=== PATIENT | female | born 1995 | race Caucasian/White ===

== ENCOUNTER → 2018-11-25 09:03 | Outpatient (CLI) | payer MEDICAID ==
[2015-01-14 06:00] VITALS: BMI 49.0
[~2018-11-25 09:03] MED LIST: LISINOPRIL10 MG PO; NORMODYNE / TR100 MG PO; PRENAVITE1 TAB PO
[2018-11-25 10:46] LABS: BASOPHILS 0.1 % (0-2); EOSINOPHILS 0.8 % (0-7); HEMATOCRIT 34.9 % (36.0-48.0); HEMOGLOBIN 11.6 g/dL (12-16); IMMATURE GRANULOCYTES 0.2 % (0-5); LYMPHOCYTES 19.3 % (15-50); MCHC 33.2 g/dL (31.0-37.0); MCV 81.4 fL (80.0-100.0); MEAN PLATELET VOLUME 10.2 fL (7.4-10.4); NEUTROPHILS 72.6 % (40-80); PLATELET COUNT 219 10x3/uL (130-400); RBC 4.29 10x6/uL (4.00-5.40); RDW 13.9 % (11.5-14.5); WBC 8.4 10x3/uL (4.8-10.8)
[2018-11-25 11:02] LABS: ALBUMIN 2.8 g/dL (3.4-5.0); ALKALINE PHOSPHATASE 72 U/L (46-116); ALT (SGPT) 16 U/L (10-68); BILIRUBIN - DIRECT 0.03 mg/dL (0.00-0.30); BILIRUBIN - TOTAL 0.23 mg/dL (0.2-1.3); CALC OSMOLALITY 279 mosm/kg (275-300); CALCIUM 9.1 mg/dL (8.5-10.1); CARBON DIOXIDE 25.1 mmol/L (21.0-32.0); CHLORIDE - SERUM 106 mmol/L (98-107); CREATININE - SERUM 0.6 mg/dL (0.6-1.3); GLUCOSE 94 mg/dL (74-106); PROTEIN - SERUM 6.1 g/dL (6.4-8.2); SODIUM 142 mmol/L (136-145); UREA NITROGEN 4 mg/dL (7-18); eGFR NON AFRICAN AMERICAN > 90 mL/min (90-120)
== END | disposition home or self-care (01) ==
LOC: D.LDO 09:03
PROVIDERS: ATTEND Obstetrics & Gynecology
DX: O16.3 Unspecified maternal hypertension, third trimester (principal)

== ENCOUNTER → 2018-11-28 08:15 | Outpatient (CLI) | payer MEDICAID ==
[2015-01-14 06:00] VITALS: BMI 49.0
== END | disposition home or self-care (01) ==
LOC: D.LDO 08:15
PROVIDERS: ATTEND Obstetrics & Gynecology
DX: O26.893 Other specified pregnancy related conditions, third trimester (principal); Z3A.30 30 weeks gestation of pregnancy

== ENCOUNTER → 2018-12-02 12:03 | Outpatient (CLI) | payer MEDICAID ==
[2015-01-14 06:00] VITALS: BMI 49.0
[2018-12-02 13:20] LABS: BASOPHILS 0.1 % (0-2); EOSINOPHILS 0.9 % (0-7); HEMATOCRIT 34.9 % (36.0-48.0); HEMOGLOBIN 11.4 g/dL (12-16); IMMATURE GRANULOCYTES 0.3 % (0-5); LYMPHOCYTES 21.4 % (15-50); MCH 26.2 pg (26.0-34.0); MCHC 32.7 g/dL (31.0-37.0); MCV 80.2 fL (80.0-100.0); MEAN PLATELET VOLUME 10.5 fL (7.4-10.4); MONOCYTES 7.6 % (2-11); NEUTROPHILS 69.7 % (40-80); PLATELET COUNT 216 10x3/uL (130-400); RBC 4.35 10x6/uL (4.00-5.40); RDW 13.9 % (11.5-14.5); WBC 7.6 10x3/uL (4.8-10.8)
[2018-12-02 13:34] LABS: ALBUMIN 2.8 g/dL (3.4-5.0); ALKALINE PHOSPHATASE 73 U/L (46-116); ALT (SGPT) 14 U/L (10-68); BILIRUBIN - DIRECT 0.09 mg/dL (0.00-0.30); BILIRUBIN - INDIRECT 0.14 mg/dL (0.00-1.00); BILIRUBIN - TOTAL 0.23 mg/dL (0.2-1.3); CALC OSMOLALITY 274 mosm/kg (275-300); CALCIUM 8.9 mg/dL (8.5-10.1); CHLORIDE - SERUM 106 mmol/L (98-107); CREATININE - SERUM 0.6 mg/dL (0.6-1.3); GLUCOSE 77 mg/dL (74-106); POTASSIUM - SERUM 4.1 mmol/L (3.5-5.1); SODIUM 140 mmol/L (136-145); UREA NITROGEN 5 mg/dL (7-18); URIC ACID 6.4 mg/dL (2.6-7.2); eGFR NON AFRICAN AMERICAN > 90 mL/min (90-120)
== END | disposition home or self-care (01) ==
LOC: D.LABREF 12:03 → D.LDO 12:03
PROVIDERS: ATTEND Obstetrics & Gynecology
DX: O10.913 Unspecified pre-existing hypertension complicating pregnancy, third trimester (principal); Z3A.31 31 weeks gestation of pregnancy

== ENCOUNTER 2018-12-04 23:55 | Outpatient (CLI) | payer MEDICAID ==
[2015-01-14 06:00] VITALS: BMI 49.0
[~2018-12-04 23:55] MED LIST changes: -NORMODYNE / TR100 MG PO; -PRENAVITE1 TAB PO
[2018-12-05 00:47] LABS: UDS - AMPHET NEGATIVE QUAL (NEGATIVE); UDS - BARB NEGATIVE QUAL (NEGATIVE); UDS - BENZO NEGATIVE QUAL (NEGATIVE); UDS - COCAINE NEGATIVE QUAL (NEGATIVE); UDS - OPIATE NEGATIVE QUAL (NEGATIVE); UDS - PCP NEGATIVE QUAL (NEGATIVE); UDS - THC NEGATIVE QUAL (NEGATIVE)
[2018-12-05 00:58] LABS: APPEARANCE CLEAR (CLEAR); BILIRUBIN NEGATIVE (NEGATIVE); COLOR YELLOW (YELLOW); GLUCOSE NEGATIVE (NEGATIVE); KETONE SMALL mg/dL (NEGATIVE); NITRITE NEGATIVE (NEGATIVE); PROTEIN NEGATIVE (NEGATIVE); UROBILINOGEN NORMAL (NORMAL)
[2018-12-05 00:59] LABS: BACTERIA MODERATE /hpf (NONE SEEN); CALCIUM OXALATE CRYSTALS 0-5 /hpf (NONE SEEN); EPITHELIAL CELLS 0-5 /hpf (0-5); RED CELLS - URINE NONE SEEN /hpf (0-5); WHITE CELLS - URINE 0-5 /hpf (0-5)
[2018-12-05 02:28] LABS: HEMATOCRIT 33.7 % (36.0-48.0); HEMOGLOBIN 11.4 g/dL (12-16); MCH 26.9 pg (26.0-34.0); MCHC 33.8 g/dL (31.0-37.0); MCV 79.5 fL (80.0-100.0); RBC 4.24 10x6/uL (4.00-5.40); WBC 10.3 10x3/uL (4.8-10.8)
[2018-12-05 02:44] LABS: ALBUMIN 2.7 g/dL (3.4-5.0); ALKALINE PHOSPHATASE 72 U/L (46-116); ALT (SGPT) 15 U/L (10-68); BILIRUBIN - DIRECT 0.03 mg/dL (0.00-0.30); BILIRUBIN - INDIRECT 0.29 mg/dL (0.00-1.00); BILIRUBIN - TOTAL 0.32 mg/dL (0.2-1.3); CALC OSMOLALITY 275 mosm/kg (275-300); CALCIUM 9.2 mg/dL (8.5-10.1); CARBON DIOXIDE 20.9 mmol/L (21.0-32.0); CHLORIDE - SERUM 105 mmol/L (98-107); CREATININE - SERUM 0.7 mg/dL (0.6-1.3); GLUCOSE 84 mg/dL (74-106); POTASSIUM - SERUM 3.3 mmol/L (3.5-5.1); PROTEIN - SERUM 6.3 g/dL (6.4-8.2); SODIUM 140 mmol/L (136-145); UREA NITROGEN 6 mg/dL (7-18); URIC ACID 6.3 mg/dL (2.6-7.2); eGFR NON AFRICAN AMERICAN > 90 mL/min (90-120)
[2018-12-12] MEDS ORDERED: NORMODYNE / TR100 MG PO (12:10)
[2018-12-12] MEDS ORDERED: PRENAVITE1 TAB PO (12:10)
== END 2018-12-05 05:30 | disposition home or self-care (01) ==
LOC: D.LDO 23:55 → D.LD 23:55 → D.LDO 12-05 05:30
PROVIDERS: ATTEND Obstetrics & Gynecology
DX: O14.93 Unspecified pre-eclampsia, third trimester (principal); Z3A.31 31 weeks gestation of pregnancy

== ENCOUNTER → 2018-12-05 14:49 | Outpatient (CLI) | payer MEDICAID ==
[2015-01-14 06:00] VITALS: BMI 49.0
[~2018-12-05 14:49] MED LIST changes: +NORMODYNE / TR100 MG PO; +PRENAVITE1 TAB PO
== END | disposition home or self-care (01) ==
LOC: D.LDO 14:49
PROVIDERS: ATTEND Obstetrics & Gynecology
DX: O16.3 Unspecified maternal hypertension, third trimester (principal); Z3A.31 31 weeks gestation of pregnancy

== ENCOUNTER 2018-12-09 13:14 | Outpatient (CLI) | payer MEDICAID ==
[2015-01-14 06:00] VITALS: BMI 49.0
[~2018-12-09 13:14] MED LIST changes: -NORMODYNE / TR100 MG PO; -PRENAVITE1 TAB PO
[2018-12-09 14:02] LABS: BASOPHILS 0.1 % (0-2); EOSINOPHILS 0.8 % (0-7); HEMATOCRIT 33.6 % (36.0-48.0); HEMOGLOBIN 11.2 g/dL (12-16); IMMATURE GRANULOCYTES 0.3 % (0-5); LYMPHOCYTES 20.6 % (15-50); MCH 26.9 pg (26.0-34.0); MCHC 33.3 g/dL (31.0-37.0); MCV 80.6 fL (80.0-100.0); NEUTROPHILS 70.2 % (40-80); PLATELET COUNT 217 10x3/uL (130-400); RBC 4.17 10x6/uL (4.00-5.40); WBC 7.9 10x3/uL (4.8-10.8)
[2018-12-09 14:18] LABS: ALBUMIN 2.8 g/dL (3.4-5.0); ALKALINE PHOSPHATASE 77 U/L (46-116); ALT (SGPT) 17 U/L (10-68); BILIRUBIN - TOTAL 0.25 mg/dL (0.2-1.3); CALC OSMOLALITY 279 mosm/kg (275-300); CALCIUM 8.9 mg/dL (8.5-10.1); CHLORIDE - SERUM 104 mmol/L (98-107); CREATININE - SERUM 0.6 mg/dL (0.6-1.3); GLUCOSE 78 mg/dL (74-106); POTASSIUM - SERUM 3.7 mmol/L (3.5-5.1); SODIUM 142 mmol/L (136-145); UREA NITROGEN 6 mg/dL (7-18); URIC ACID 6.4 mg/dL (2.6-7.2); eGFR NON AFRICAN AMERICAN > 90 mL/min (90-120)
[2018-12-09 14:20] LABS: BILIRUBIN - DIRECT 0.05 mg/dL (0.00-0.30)
[2018-12-12] MEDS ORDERED: NORMODYNE / TR100 MG PO (12:10)
[2018-12-12] MEDS ORDERED: PRENAVITE1 TAB PO (12:10)
== END 2018-12-09 15:19 ==
LOC: D.LDO 13:14
PROVIDERS: ATTEND Obstetrics & Gynecology
DX: O16.3 Unspecified maternal hypertension, third trimester (principal); Z3A.32 32 weeks gestation of pregnancy

== ENCOUNTER → 2018-12-12 11:49 | Outpatient (CLI) | payer MEDICAID ==
[2015-01-14 06:00] VITALS: BMI 49.0
[~2018-12-12 11:49] MED LIST changes: +NORMODYNE / TR100 MG PO; +PRENAVITE1 TAB PO
== END | disposition home or self-care (01) ==
LOC: D.LDO 11:49
PROVIDERS: ATTEND Obstetrics & Gynecology
DX: O10.913 Unspecified pre-existing hypertension complicating pregnancy, third trimester (principal); Z3A.32 32 weeks gestation of pregnancy

== ENCOUNTER 2018-12-16 19:20 | Outpatient (CLI) | payer MEDICAID ==
[2015-01-14 06:00] VITALS: BMI 49.0
[2018-12-16 19:51] LABS: APPEARANCE CLEAR (CLEAR); BILIRUBIN NEGATIVE (NEGATIVE); COLOR YELLOW (YELLOW); GLUCOSE NEGATIVE (NEGATIVE); KETONE MODERATE mg/dL (NEGATIVE); NITRITE NEGATIVE (NEGATIVE); PROTEIN NEGATIVE (NEGATIVE); UROBILINOGEN NORMAL (NORMAL)
[2018-12-16 19:53] LABS: BASOPHILS 0.2 % (0-2); EOSINOPHILS 1.1 % (0-7); HEMATOCRIT 33.1 % (36.0-48.0); HEMOGLOBIN 11.1 g/dL (12-16); IMMATURE GRANULOCYTES 0.4 % (0-5); LYMPHOCYTES 21.4 % (15-50); MCH 26.7 pg (26.0-34.0); MCHC 33.5 g/dL (31.0-37.0); MCV 79.8 fL (80.0-100.0); MEAN PLATELET VOLUME 10.3 fL (7.4-10.4); MONOCYTES 7.2 % (2-11); NEUTROPHILS 69.7 % (40-80); PLATELET COUNT 214 10x3/uL (130-400); RBC 4.15 10x6/uL (4.00-5.40); RDW 14.2 % (11.5-14.5); WBC 9.7 10x3/uL (4.8-10.8)
[2018-12-16 20:29] LABS: ALBUMIN 2.6 g/dL (3.4-5.0); ALKALINE PHOSPHATASE 89 U/L (46-116); ALT (SGPT) 18 U/L (10-68); BILIRUBIN - DIRECT 0.07 mg/dL (0.00-0.30); BILIRUBIN - INDIRECT 0.21 mg/dL (0.00-1.00); BILIRUBIN - TOTAL 0.28 mg/dL (0.2-1.3); CALC OSMOLALITY 279 mosm/kg (275-300); CALCIUM 8.7 mg/dL (8.5-10.1); CARBON DIOXIDE 19.4 mmol/L (21.0-32.0); CHLORIDE - SERUM 105 mmol/L (98-107); CREATININE - SERUM 0.8 mg/dL (0.6-1.3); POTASSIUM - SERUM 3.4 mmol/L (3.5-5.1); PROTEIN - SERUM 5.8 g/dL (6.4-8.2); SODIUM 141 mmol/L (136-145); UREA NITROGEN 4 mg/dL (7-18); URIC ACID 6.1 mg/dL (2.6-7.2); eGFR NON AFRICAN AMERICAN > 90 mL/min (90-120)
[2018-12-16 20:36] LABS: GLUCOSE 139 mg/dL (74-106)
== END 2018-12-16 23:00 ==
LOC: D.LDO 19:20
PROVIDERS: ATTEND Obstetrics & Gynecology
DX: O10.913 Unspecified pre-existing hypertension complicating pregnancy, third trimester (principal); Z3A.33 33 weeks gestation of pregnancy

== ENCOUNTER → 2018-12-19 09:02 | Outpatient (CLI) | payer MEDICAID ==
[2015-01-14 06:00] VITALS: BMI 49.0
== END | disposition home or self-care (01) ==
LOC: D.LDO 09:02
PROVIDERS: ATTEND Obstetrics & Gynecology
DX: O14.03 Mild to moderate pre-eclampsia, third trimester (principal); Z3A.33 33 weeks gestation of pregnancy

== ENCOUNTER → 2018-12-23 08:40 | Outpatient (CLI) | payer MEDICAID ==
[2015-01-14 06:00] VITALS: BMI 49.0
[2018-12-23 09:43] LABS: BASOPHILS 0.1 % (0-2); EOSINOPHILS 0.9 % (0-7); HEMATOCRIT 33.4 % (36.0-48.0); HEMOGLOBIN 11.3 g/dL (12-16); IMMATURE GRANULOCYTES 0.3 % (0-5); LYMPHOCYTES 22.7 % (15-50); MCH 27.3 pg (26.0-34.0); MCHC 33.8 g/dL (31.0-37.0); MCV 80.7 fL (80.0-100.0); MEAN PLATELET VOLUME 10.1 fL (7.4-10.4); MONOCYTES 6.4 % (2-11); NEUTROPHILS 69.6 % (40-80); PLATELET COUNT 210 10x3/uL (130-400); RBC 4.14 10x6/uL (4.00-5.40); RDW 14.2 % (11.5-14.5); WBC 6.8 10x3/uL (4.8-10.8)
[2018-12-23 09:54] LABS: ALBUMIN 2.5 g/dL (3.4-5.0); ALKALINE PHOSPHATASE 90 U/L (46-116); ALT (SGPT) 16 U/L (10-68); BILIRUBIN - INDIRECT 0.15 mg/dL (0.00-1.00); BILIRUBIN - TOTAL 0.25 mg/dL (0.2-1.3); CALC OSMOLALITY 283 mosm/kg (275-300); CALCIUM 8.3 mg/dL (8.5-10.1); CARBON DIOXIDE 23.6 mmol/L (21.0-32.0); CHLORIDE - SERUM 108 mmol/L (98-107); CREATININE - SERUM 0.7 mg/dL (0.6-1.3); GLUCOSE 147 mg/dL (74-106); POTASSIUM - SERUM 3.7 mmol/L (3.5-5.1); PROTEIN - SERUM 5.7 g/dL (6.4-8.2); SODIUM 142 mmol/L (136-145); UREA NITROGEN 6 mg/dL (7-18); eGFR NON AFRICAN AMERICAN > 90 mL/min (90-120)
== END | disposition home or self-care (01) ==
LOC: D.LDO 08:40
PROVIDERS: ATTEND Obstetrics & Gynecology
DX: O14.03 Mild to moderate pre-eclampsia, third trimester (principal); Z3A.34 34 weeks gestation of pregnancy

== ENCOUNTER → 2018-12-26 09:13 | Outpatient (CLI) | payer MEDICAID ==
[2015-01-14 06:00] VITALS: BMI 49.0
== END | disposition home or self-care (01) ==
LOC: D.LDO 09:13
PROVIDERS: ATTEND Obstetrics & Gynecology
DX: Z34.90 Encounter for supervision of normal pregnancy, unspecified, unspecified trimester (principal)

== ENCOUNTER → 2018-12-31 12:16 | Outpatient (CLI) | payer MEDICAID ==
[2015-01-14 06:00] VITALS: BMI 49.0
[2018-12-31 12:56] LABS: BASOPHILS 0.1 % (0-2); EOSINOPHILS 0.6 % (0-7); HEMATOCRIT 33.9 % (36.0-48.0); HEMOGLOBIN 11.4 g/dL (12-16); IMMATURE GRANULOCYTES 0.2 % (0-5); MCHC 33.6 g/dL (31.0-37.0); MCV 80.1 fL (80.0-100.0); MEAN PLATELET VOLUME 10.3 fL (7.4-10.4); MONOCYTES 7.3 % (2-11); NEUTROPHILS 71.8 % (40-80); PLATELET COUNT 200 10x3/uL (130-400); RBC 4.23 10x6/uL (4.00-5.40); RDW 14.4 % (11.5-14.5); WBC 8.4 10x3/uL (4.8-10.8)
[2018-12-31 13:15] LABS: ALBUMIN 2.6 g/dL (3.4-5.0); ALKALINE PHOSPHATASE 88 U/L (46-116); ALT (SGPT) 14 U/L (10-68); BILIRUBIN - DIRECT 0.09 mg/dL (0.00-0.30); BILIRUBIN - TOTAL 0.29 mg/dL (0.2-1.3); CALC OSMOLALITY 276 mosm/kg (275-300); CALCIUM 8.8 mg/dL (8.5-10.1); CARBON DIOXIDE 22.4 mmol/L (21.0-32.0); CHLORIDE - SERUM 104 mmol/L (98-107); CREATININE - SERUM 0.6 mg/dL (0.6-1.3); POTASSIUM - SERUM 3.6 mmol/L (3.5-5.1); PROTEIN - SERUM 5.8 g/dL (6.4-8.2); SODIUM 140 mmol/L (136-145); UREA NITROGEN 7 mg/dL (7-18); URIC ACID 6.5 mg/dL (2.6-7.2); eGFR NON AFRICAN AMERICAN > 90 mL/min (90-120)
[2018-12-31 13:17] LABS: GLUCOSE 97 mg/dL (74-106)
== END | disposition home or self-care (01) ==
LOC: D.LDO 12:16
PROVIDERS: ATTEND Obstetrics & Gynecology
DX: O10.913 Unspecified pre-existing hypertension complicating pregnancy, third trimester (principal); Z3A.35 35 weeks gestation of pregnancy

== ENCOUNTER → 2019-01-03 21:31 | Outpatient (CLI) | payer MEDICAID ==
[2015-01-14 06:00] VITALS: BMI 49.0
== END | disposition home or self-care (01) ==
LOC: D.LDO 21:31
PROVIDERS: ATTEND Obstetrics & Gynecology
DX: O11.9 Pre-existing hypertension with pre-eclampsia, unspecified trimester (principal)

== ENCOUNTER 2019-01-04 17:40 | Outpatient (CLI) | payer MEDICAID ==
[2015-01-14 06:00] VITALS: BMI 49.0
[2019-01-04 18:03] LABS: BASOPHILS 0.1 % (0-2); EOSINOPHILS 0.4 % (0-7); HEMATOCRIT 35.6 % (36.0-48.0); HEMOGLOBIN 11.7 g/dL (12-16); IMMATURE GRANULOCYTES 0.2 % (0-5); LYMPHOCYTES 16.7 % (15-50); MCH 27.1 pg (26.0-34.0); MCHC 32.9 g/dL (31.0-37.0); MCV 82.4 fL (80.0-100.0); MEAN PLATELET VOLUME 10.3 fL (7.4-10.4); MONOCYTES 7.3 % (2-11); NEUTROPHILS 75.3 % (40-80); PLATELET COUNT 221 10x3/uL (130-400); RBC 4.32 10x6/uL (4.00-5.40); RDW 14.1 % (11.5-14.5); WBC 9.5 10x3/uL (4.8-10.8)
[2019-01-04 18:25] LABS: APTT 29.2 SECONDS (22.8-39.4); INR 1.05 (0.85-1.17); PROTIME 13.2 SECONDS (11.6-15.0)
[2019-01-04 20:40] LABS: APPEARANCE CLEAR (CLEAR); BILIRUBIN NEGATIVE (NEGATIVE); COLOR YELLOW (YELLOW); GLUCOSE NEGATIVE (NEGATIVE); KETONE MODERATE mg/dL (NEGATIVE); NITRITE NEGATIVE (NEGATIVE); PROTEIN NEGATIVE (NEGATIVE); SPECIFIC GRAVITY 1.025 (1.005-1.020); UROBILINOGEN NORMAL (NORMAL)
[2019-01-04 23:04] LABS: APPEARANCE CLEAR (CLEAR); BILIRUBIN NEGATIVE (NEGATIVE); COLOR YELLOW (YELLOW); GLUCOSE NEGATIVE (NEGATIVE); KETONE LARGE mg/dL (NEGATIVE); NITRITE NEGATIVE (NEGATIVE); PROTEIN NEGATIVE (NEGATIVE); SPECIFIC GRAVITY 1.025 (1.005-1.020); UROBILINOGEN NORMAL (NORMAL)
== END 2019-01-05 00:50 | disposition home or self-care (01) ==
LOC: D.LDO 17:40 → D.LD 23:16 → D.LDO 01-05 00:50
PROVIDERS: ATTEND Obstetrics & Gynecology
DX: O26.893 Other specified pregnancy related conditions, third trimester (principal); Z3A.36 36 weeks gestation of pregnancy; R10.9 Unspecified abdominal pain; W01.0XXA Fall on same level from slipping, tripping and stumbling without subsequent striking against object, initial encounter

== ENCOUNTER 2019-01-07 17:04 | Outpatient (CLI) | payer MEDICAID ==
[2015-01-14 06:00] VITALS: BMI 49.0
[2019-01-07 17:40] LABS: BASOPHILS 0.1 % (0-2); EOSINOPHILS 0.8 % (0-7); HEMATOCRIT 34.7 % (36.0-48.0); HEMOGLOBIN 11.4 g/dL (12-16); IMMATURE GRANULOCYTES 0.3 % (0-5); LYMPHOCYTES 18.8 % (15-50); MCH 27.1 pg (26.0-34.0); MCHC 32.9 g/dL (31.0-37.0); MCV 82.6 fL (80.0-100.0); MEAN PLATELET VOLUME 10.3 fL (7.4-10.4); MONOCYTES 8.3 % (2-11); NEUTROPHILS 71.7 % (40-80); PLATELET COUNT 229 10x3/uL (130-400); RDW 14.3 % (11.5-14.5); WBC 8.8 10x3/uL (4.8-10.8)
[2019-01-07 18:09] LABS: ALBUMIN 2.6 g/dL (3.4-5.0); ALKALINE PHOSPHATASE 102 U/L (46-116); ALT (SGPT) 14 U/L (10-68); BILIRUBIN - INDIRECT 0.32 mg/dL (0.00-1.00); BILIRUBIN - TOTAL 0.34 mg/dL (0.2-1.3); CALC OSMOLALITY 276 mosm/kg (275-300); CALCIUM 8.9 mg/dL (8.5-10.1); CARBON DIOXIDE 22.4 mmol/L (21.0-32.0); CHLORIDE - SERUM 106 mmol/L (98-107); CREATININE - SERUM 0.7 mg/dL (0.6-1.3); GLUCOSE 77 mg/dL (74-106); POTASSIUM - SERUM 3.5 mmol/L (3.5-5.1); PROTEIN - SERUM 6.5 g/dL (6.4-8.2); SODIUM 140 mmol/L (136-145); UREA NITROGEN 9 mg/dL (7-18); eGFR NON AFRICAN AMERICAN > 90 mL/min (90-120)
[2019-01-07 18:12] LABS: BILIRUBIN - DIRECT 0.02 mg/dL (0.00-0.30)
== END 2019-01-07 18:40 ==
LOC: D.LDO 17:04
PROVIDERS: ATTEND Obstetrics & Gynecology
DX: O16.3 Unspecified maternal hypertension, third trimester (principal); Z3A.36 36 weeks gestation of pregnancy

== ENCOUNTER → 2019-01-10 11:21 | Outpatient (CLI) | payer MEDICAID ==
[2015-01-14 06:00] VITALS: BMI 49.0
[~2019-01-10 11:21] MED LIST changes: +HYDROCODON-ACE1 EA10 PO; +MOTRIN600 MG PO
== END | disposition home or self-care (01) ==
LOC: D.LDO 11:21
PROVIDERS: ATTEND Obstetrics & Gynecology
DX: O16.9 Unspecified maternal hypertension, unspecified trimester (principal)

== ENCOUNTER 2019-01-13 05:30 | Inpatient (IN) | payer MEDICAID ==
[~2019-01-13] VITALS: Ht 167.6 cm; Wt 139.7 kg
--- NOTE | ~2019-01-13 | DS ---
PATIENT:MARYJANE THOMAS :89 MEDICAL RECORD: [id number] DISCHARGE SUMMARY ADMISSION DATE: 01/13/19 DISCHARGE DATE: 01/16/19 The patient was admitted on 01/13/2019. HOSPITAL COURSE: A 24-year-old at 37 weeks and 3 days, admitted for induction of labor secondary to preeclampsia. The patient was noted to be O positive, group B strep positive, and rubella immune. PAST MEDICAL HISTORY: Significant for, 1. Chronic hypertension. 2. Depression. 3. Polycystic ovarian syndrome. 4. Morbid obesity. 5. Right ovarian cyst. 6. Mild intermittent asthma. 7. The patient also reported history of depression and anxiety. PAST SURGICAL HISTORY: Included a cholecystectomy, tonsillectomy and adenoidectomy, back surgery as well as a dilation and curettage. ALLERGIES: THE PATIENT REPORTED AN ALLERGY TO ERYTHROMYCIN. MEDICATIONS: Included labetalol 100 mg p.o. t.i.d. and vitamins. FAMILY HISTORY: Significant for a sibling with diabetes, not otherwise specified. SOCIAL HISTORY: Positive for being a former tobacco user. PHYSICAL EXAMINATION: On initial assessment, vital signs were stable. The patient was afebrile and blood pressures mostly within normal limits. The lungs are clear to auscultation. CARDIOVASCULAR: Regular rate and rhythm. PELVIC: Uterus was appropriately sized and nontender. EXTREMITIES: Lower extremities are free of erythema, swelling, or Homans sign. wellbeing was reassuring with category 1 tracing. ASSESSMENT AND PLAN: 1. Admission, term intrauterine at 37 weeks. 2. Mild preeclampsia. 3. Right ovarian cyst. 4. Positive group B strep. 5. Depression. 6. Morbid obesity. Plan at that time for Pitocin induction of labor. Penicillin for group B strep. Category 1 tracing. The patient was placed on Pitocin, and after greater than 12 hours, no cervical change was noted. The patient was given opportunity of resting and restarting Pitocin. The patient opted to proceed with section. section was performed. Operative report is as dictated. 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 The patient did well overnight on postop day #0, tolerating clear liquid, IV fluids. The patient on Dilaudid SUPERVISOR CELL OPERATION and IV Toradol for pain. English catheter was left in overnight and urine output was found to be adequate. EXTREMITIES: Lower extremities were free of Homans sign and SCDs were on and functioning normally. On morning of postop day #1, vital signs were stable. The patient was restarted on p.o. labetalol with good control of blood pressures. Vital signs stable. The patient was afebrile and well controlled blood pressure, incision was clean, dry, and intact. Uterus was infraumbilical and appropriately tender. Lower extremities were free of Homans sign, erythema and swelling. The patient was advanced to general diet and p.o. pain meds. English catheter was discontinued and ambulation begun. The patient continued to improve on postop day #1. On the morning of postop day #2, the patient continued to do well. Vital signs remained stable. The patient was normotensive and afebrile. Incision was clean, dry and intact. Uterus was infraumbilical. The patient reported minimal lochia, tolerating general diet and p.o. pain meds, ambulating well and voiding freely. The patient was discharged home on postop day #2 with instructions to follow up the next week for staple removal. TRANSINT:[id number] Voice Confirmation ID: [id number] DOCUMENT ID: [id number] BRENNAN CARRILLO MD CC: [id number] DICTATION DATE: 03/15/191951 HEARING AID SPECIALIST: 03/16/19822 DIS IN 01/16/19 [facility] [address] [id number]
[~2019-01-13 05:30] MED LIST changes: -HYDROCODON-ACE1 EA10 PO; -MOTRIN600 MG PO
--- NOTE | 2019-01-13 07:00 | NUR ---
SBAR HANDOFF RECEIVED FROM GLEN ARMSTRONG. PATIENT REMAINS STABLE IN BED, SUPINE WITH NO SYMPTOMS OF DISTRESS. DENIES PAIN
[2019-01-13 07:08] LABS: HEMATOCRIT 35.5 % (36.0-48.0); HEMOGLOBIN 11.5 g/dL (12-16); MCH 26.8 pg (26.0-34.0); MCHC 32.4 g/dL (31.0-37.0); MCV 82.8 fL (80.0-100.0); RBC 4.29 10x6/uL (4.00-5.40); RDW 14.4 % (11.5-14.5); WBC 8.5 10x3/uL (4.8-10.8)
[2019-01-13 07:30] VITALS: BP 129/60
--- NOTE | 2019-01-13 07:30 | NUR ---
VSS. UP AND ABOUT IN ROOM CARING FOR . STATES SHE IS VOIDING ON SELF. ASSISTED TO BATHROOM TO FINISH VOIDING. STATES SHE HAS NOT BEEN UP ALL NIGHT TO VOID. INSTRUCTED TO SET ALARM ON PHONE TO GO SIT ON TOILET EVERY 1-2 HR TO ATTEMPT VOIDING AND TO INCREASE FLUID INTAKE TO 1 GLASS OF WATER EVERY HOUR. FUNDUS FIRM AND 1FBU. LIGHT LOCHIA RUBRA. DENIES PASSAGE OF CLOTS VAGINALLY OR OF SATURATING PERIPAD IN LESS THAN ONE HOUR. VULVA EDEMATOUS. REPORTS SHE IS USING PERIBOTTLE AND BETADINE/WATER MIX TO DO PERINEAL CARE EACH VOIDING BUT HAS JUST NOW USED DERMOPLAST AND TUCKS TO PERINEUM, AFTER PERICARE. NEGATIVE HOMANS BLE. BBS= AND CTA. ALERT AND ORIENTED X 4. BONDING WELL WITH . STATES SHE WILL HAVE ASSISTANCE WITH CARE OF INFANT AT HOME; THAT SHE LIVES WITH HER DAD AND GRANDMOTHER. REPORTS FOB MAY OR MAY NOT BE INVOLVED IN CARE OF ; THAT THEY ARE GOING TO GET PATERNITY TEST RUN FIRST. NO SIGNS OF DISTRESS.
[2019-01-13 07:38] VITALS: BP 143/85; Ht 167.6 cm; Wt 139.7 kg
--- NOTE | 2019-01-13 08:30 | NUR ---
INFANT WHILE SITTING ON COUCH. NOTED PROPER LATCH/SUCK/SWALLOW AND POSITIONING. NO SIGNS OF DISTRESS.
--- NOTE | 2019-01-13 09:00 | NUR ---
REPORTS VOID. 100ML URINE NOTED IN URINE RECEPTACLE IN TOILET. STATES SHE HAS NOT HAD MUCH FLUID INTAKE THIS MORNING. AGAIN, ASKED PATIENT TO DRINK ONE GLASS OF WATER EVERY HOUR AND TO CONTINUE TO MEASURE EACH VOID.
--- NOTE | 2019-01-13 10:34 | NUR ---
ASKING FOR BREASTPUMP. PUMP AND APPARATUS ALONG WITH INSTRUCTIONS, PROVIDED. INSTRUCTED TO PUMP EVERY 2 HR WHILE AWAKE
--- NOTE | 2019-01-13 10:35 | NUR ---
UP AND ABOUT WALKING IN GARCIA WITH IN CRIB. NO SIGNS OF DISTRESS
[2019-01-13 13:11] LABS: ALBUMIN 2.5 g/dL (3.4-5.0); ALKALINE PHOSPHATASE 104 U/L (46-116); ALT (SGPT) 13 U/L (10-68); BILIRUBIN - DIRECT 0.12 mg/dL (0.00-0.30); BILIRUBIN - TOTAL 0.42 mg/dL (0.2-1.3); CALC OSMOLALITY 276 mosm/kg (275-300); CALCIUM 8.2 mg/dL (8.5-10.1); CARBON DIOXIDE 23.9 mmol/L (21.0-32.0); CHLORIDE - SERUM 106 mmol/L (98-107); CREATININE - SERUM 0.5 mg/dL (0.6-1.3); GLUCOSE 81 mg/dL (74-106); POTASSIUM - SERUM 3.5 mmol/L (3.5-5.1); PROTEIN - SERUM 5.7 g/dL (6.4-8.2); SODIUM 141 mmol/L (136-145); UREA NITROGEN 4 mg/dL (7-18); eGFR NON AFRICAN AMERICAN > 90 mL/min (90-120)
[2019-01-14] VITALS (10 sets, daily range): BP systolic 114–168; BP diastolic 71–98
[2019-01-14 07:13] LABS: RAPID PLASMA REAGIN Non Reactive (Non Reactive)
--- NOTE | 2019-01-14 11:18 | NUR ---
1108 VIABLE BABY BOY DELIVERED CORD BLOOD AND GASES DONE AND SENT OUT, NIR
--- NOTE | 2019-01-14 12:42 | NUR ---
FUNDUS PALPABLE AT UMBILICUS AND MIDLINE.
--- NOTE | 2019-01-14 12:43 | NUR ---
MEETS ANESTHESIA DISCHARGE CRITERA
--- NOTE | 2019-01-14 12:59 | NUR ---
RECEIVED PT FROM VIA BED TO ROOM 1223. BED LOCKED AND PLACED IN LOW POSITION. PT AWAKE. AAO X 3. VSS. HRRR WITHOUT AUDIBLE MURMUR. BBS CLEAR. BS HYPOACTIVE. ABDOMEN SOFT. FUNDUS FIRM AT U/1. RUBRA LOCHIA MOD AMT. QUARTER SIZED CLOT EXPRESSED ON FUNDAL MASSAGE. PERICARE DONE. PERIPADS CHANGED. ABDOMINAL DRESSING WITH SMALL AREA OF SEROSANGUINOUS DRAINAGE CIRCLED AND NOTED. NEG HOMANS' SIGN. PPP. 1+/1+ PITTING EDEMA NOTED TO FEET. DIA TO GRAVITY DRAINING CLEAR, YELLOW URINE. PIV OF NS WITH PITOCIN 20 UNITS INFUSING AT 125 ML/HR. SITE CLEAR TO RIGHT HAND. ICE PACK TO INCISION. PT STATES INCISIONAL PAIN OF "8" ON 0-10 PAIN SCALE. PT ORIENTED TO ROOM, BED, AND CALL LIGHT. SR UPX 2. CALL LIGHT IN REACH.
--- NOTE | 2019-01-14 13:03 | NUR ---
DILAUDID NIGHT SHIFT SUPERVISOR STARTED ORDERED. PT INSTRUCTED ON MED AND USE OF BUTTON. PT VERBALIZES AND DEMONSTRATES UNDERSTANDING.
--- NOTE | 2019-01-14 13:20 | NUR ---
DR SCHRADER TO ROOM. VISITS WITH PT. DISCUSSES POC FOR . PT TEARFUL.
--- NOTE | 2019-01-14 13:30 | NUR ---
SO TO ROOM. PT TEARFUL. COLD, WET CLOTH TO FACE.
--- NOTE | 2019-01-14 13:40 | NUR ---
[place] SODA PROVIDED TO PT. PT DENIES NAUSEA.
--- NOTE | 2019-01-14 13:40 | NUR ---
DR CARRILLO BEEPED RE-BP'S.
--- NOTE | 2019-01-14 13:44 | NUR ---
PT MOTHER AND MOTHER IN LAW TO ROOM.
--- NOTE | 2019-01-14 14:15 | NUR ---
PT LYING IN SEMI-MOORE'S POSITION. VISITS WITH FAMILY. FUNDUS FIRM AT U/1. RUBRA LOCHIA SMALL AMT. NO CLOTS EXPRESSED. PERIPADS CHANGED. VS NOTED.
--- NOTE | 2019-01-14 14:16 | NUR ---
PT C/O INCISIONAL PAIN OF "6" ON 0-10 PAIN SCALE. TORADOL 30 MG GIVEN SIVP OVER 2 MINUTES. PT INSTRUCTED ON MED. VERBALIZES UNDERSTANDING.
--- NOTE | 2019-01-14 14:23 | NUR ---
DR CARRILLO BEEPED.
--- NOTE | 2019-01-14 14:37 | NUR ---
DR CARRILLO CALLS. NOTIFIED OF BP'S, PT UPSET ABOUT BABY. ORDERS RECEIVED.
--- NOTE | 2019-01-14 15:15 | NUR ---
PT REQUESTING TO GO TO NURSERY TO SEE . PT SITS UP ON SIDE OF BED. STATES LEGS FEEL NORMAL. PT TRANSFERED PER SELF AND 1 ASSIST TO WHEELCHAIR. PT KRISTEN WELL. STATES LEGS FEEL NORMAL. PT TO NURSERY VIA WHEELCHAIR PER FAMILY.
--- NOTE | 2019-01-14 16:45 | NUR ---
PT RETURNS TO ROOM VIA WHEELCHAIR PER FAMILY. PT ASSISTED BACK TO BED. KRISTEN ACTIVITY WELL. C/O INCISIONAL PAIN OF "8" ON 0-10 PAIN SCALE. PERICARE DONE. MOD RUBRA LOCHIA NOTED. PERIPAD CHANGED. SCDS BACK ON BLE. PUMP ON.DIA TO GRAVITY DRAINING CLEAR, YELLOW URINE. 900 ML EMPTIED FROM BAG. PT PRESSED CONTRACT PREPARER BUTTON AT THIS TIME. ABDOMINAL DRESSING DRY WITHOUT NEW DRAINAGE. SMALL AREA TO LOWER PART WITH LOCHIA NOTED ON DRESSING.
--- NOTE | 2019-01-14 17:15 | NUR ---
CLEAR LIQUID DIET SERVED. PT KRISTEN WELL. DENIES NAUSEA.
[2019-01-14 17:32] LABS: BASOPHILS 0.1 % (0-2); EOSINOPHILS 0.1 % (0-7); HEMATOCRIT 32.5 % (36.0-48.0); HEMOGLOBIN 10.5 g/dL (12-16); IMMATURE GRANULOCYTES 0.4 % (0-5); LYMPHOCYTES 13.6 % (15-50); MCH 26.8 pg (26.0-34.0); MCHC 32.3 g/dL (31.0-37.0); MCV 82.9 fL (80.0-100.0); MONOCYTES 6.9 % (2-11); NEUTROPHILS 78.9 % (40-80); PLATELET COUNT 200 10x3/uL (130-400); RBC 3.92 10x6/uL (4.00-5.40); RDW 14.5 % (11.5-14.5)
--- NOTE | 2019-01-14 17:45 | NUR ---
NEW STAADDIE PLACED ON PT RIGHT INNER THIGH FOR DIA STABILIZATION.
--- NOTE | 2019-01-14 19:10 | NUR ---
ROUNDS MADE, VS OBTAINED, DR SCHRADER TO ROOM AT THIS TIME
--- NOTE | 2019-01-14 19:25 | NUR ---
ASSESSMENT PER FLOW SHEET, IV IN RIGHT HAND INTACT WITH NO REDNESS OR EDEMA INFUSING VIA PUMP NS WITH PITOCIN AT 125 ML/HR, DILAUDID BRUSH PAINTER FOR PAIN MANAGEMENT, RATES INC PAIN 09/16, PUSHES BUTTON AT THIS TIME, PT INST ON AND VERBALIZES UNDERSTANDING OF BRUSH PAINTER FOR PAIN MANAGEMENT, FF, ML, U/1, MOD BLEEDING NOTED WITH NO CLOTS, MONTEZ CARE DONE WITH WET WARM WASH CLOTHS, WHITE CHUX AND MONTEZ PAD CHANGED, BIKINI INC WITH DRESSING INTACT, NO NEW DRAINAGE NOTED, ICE PACK TO ABD, DIA CATH INTACT, DRAINING CLEAR YELLOW URINE, PT REPORTS FLATUS, SCD'S ON AND WORKING PROPERLY, PT REPORTS THAT SHE PLANS ON GETTING UP AGAIN TO SEE , INFORMED PT THAT I WILL CHECK TO SEE WHEN THE NSY WAS READY FOR HER TO COME, PT VERBALIZES UNDERSTANDING, DENIES NEEDS AT THIS TIME, FOB AND FAMILY BACK TO ROOM
--- NOTE | 2019-01-14 20:10 | NUR ---
BING MAGANA, GLEN REPORTS THAT SHE NEEDS TO CALL DR NDIAYE, SHE STATES THAT SHE WILL ASK FOR ORDERS TO SALINE LOCK, D/C DIA, START ON PO PAIN MEDS, AND AMB TO NSY
--- NOTE | 2019-01-14 20:20 | NUR ---
DISCUSSED POSSIBLE POC WITH PT REGARDING SALINE LOCKING IV, STARTING ON PO PAIN MEDS, REMOVING DIA, AND AMB, PT VERBALIZES UNDERSTANDING, PT ASKS ABOUT USING WC TO NSY, INFORMED HER THAT FOB COULD PUSH HER IN THE WC, BUT THAT SHE WILL NEED TO AMB SOME, PT VERBALIZES UNDERSTANDING, DENIES FURTHER QUESTIONS, FOB AND FAMILY AT BEDSIDE
--- NOTE | 2019-01-14 21:15 | NUR ---
PT RESTING WITH EYES CLOSED, AROUSES TO SOFT VERBAL STIMULATION, OBTAINED BP, ADM 2100 MED AND TORADOL PER MD ORDERS, SEE EMAR, PT REPORTS THAT SHE DOES NOT WANT THE DIA CATH REMOVED OR THE VACUUM COOKER OPERATOR STOPPED, INFORMED PT THAT WAS FINE, PT READY TO GO TO [facility], IV CONVERTED TO SALINE LOCK, PT CLEANED UP WITH WET WARM WASH CLOTH, MONTEZ PAD PLACED, WILL TRANSFER PT TO [facility] VIA WC
--- NOTE | 2019-01-14 21:37 | NUR ---
PT TO WC, GAIT STEADY, KRISTEN WELL, PT TO NSY WITH FOB
--- NOTE | 2019-01-14 22:39 | NUR ---
PT BACK TO ROOM, ASSISTED PT TO BED, SALINE LOCK CONVERTED TO IV, NS WITH PITOCIN RESTARTED TO INFUSE AT 125 ML/HR, NEW DILAUDID SYRINGE TO COOK SOUP PER MD ORDERS, SEE EMAR, MONTEZ PAD CHANGED, LITE BLEEDING NOTED WITH NO CLOTS, FRESH ICE PACK TO ABD, SCD'S PLACED ON AND WORKING PROPERLY, PT REQUESTED AND SERVED [place] SODA, FRESH H20, AND CHICKEN BROTH, DENIES FURTHER NEEDS, FOB AT BEDSIDE
--- NOTE | 2019-01-14 23:05 | NUR ---
PT REPORTS SHE IS READY TO GET SOME SLEEP, VS OBTAINED, EMPTIED 250 MLS OF YELLOW URINE FROM DIA CHAMBER TO DIA BAG, PT DENIES NEEDS AT THIS TIME, FOB AT BEDSIDE
--- NOTE | 2019-01-15 00:24 | NUR ---
PT RESTING WITH EYES CLOSED, RESP QUIET, NO DISTRESS NOTED, LEFT UNDISTURBED AT THIS TIME, FOB ASLEEP AT BEDSIDE
--- NOTE | 2019-01-15 02:00 | NUR ---
PT UNIFORM CAP OPERATOR LIGHT, PT REQUESTS MONTEZ CARE, LITE-MOD BLEEDING NOTED WITH 1 PEA SIZE CLOT, PT CLEANED UP WITH WET WARM WASH CLOTH, MONTEZ PAD CHANGE, PT PUSHES JOINT SPECIAL OPERATIONS BUTTON FOR PAIN CONTROL, PT REQUESTS TORADOL WHEN DUE, INFORMED PT THAT IT WAS DUE AROUND 3AM, AND THAT I WILL BRING IT IN AROUND THAT TIME, PT VERBALIZES UNDERSTANDING, PT REFUSES ICE PACK AT THIS TIME, PT STATES "I'M COLD", TEMP OBTAINED, 97.9, FOB TURNS AIR CONDITIONER DOWN, PT DENIES FURTHER NEEDS
--- NOTE | 2019-01-15 02:24 | NUR ---
DR SCHRADER TO ROOM, INFORMS PT AND FOB THAT WILL BE TRANSFERRED TO [facility]
--- NOTE | 2019-01-15 03:18 | NUR ---
DR SCHRADER OUT OF ROOM, THIS RN TO ROOM, ADM TORADOL SIVP PER MD ORDERS, SEE EMAR, INFORMED PT THAT I WILL BE BACK SHORTLY TO DO VS AND MONTEZ CARE, PT REPOSITIONED TO LEFT SIDE WITH PILLOW BEHIND BACK FOR COMFORT AND SUPPPORT, SCD'S CONTINUE ON AND WORKING PROPERLY, FOB AT BEDSIDE
[2019-01-15 04:00] VITALS: BP 126/79
--- NOTE | 2019-01-15 04:00 | NUR ---
VS OBTAINED, MONTEZ CARE DONE WITH WET WARM WASH CLOTHS, LITE BLEEDING NOTED WITH NO CLOTS, MONTEZ PAD CHANGED, FRESH ICE PACK TO ABD, SCD'S CONTINUE ON AND WORKING PROPERLY, PT RATES PAIN 5/10, FOB SERVED [place] SODA TO PT, PT INFORMED THAT [facility] HAS A WEBCAM SO SHE WILL BE ABLE TO SEE INFANT, AND THAT TEAM FROM CHILDRENS WILL GO OVER ALL THAT WITH HER, PT VERBALIZES UNDERSTANDING
[2019-01-15 04:38] LABS: BASOPHILS 0 % (0-2); EOSINOPHILS 0.8 % (0-7); HEMATOCRIT 30.2 % (36.0-48.0); HEMOGLOBIN 9.5 g/dL (12-16); IMMATURE GRANULOCYTES 0.2 % (0-5); LYMPHOCYTES 8.7 % (15-50); MCH 26.5 pg (26.0-34.0); MCHC 31.5 g/dL (31.0-37.0); MCV 84.1 fL (80.0-100.0); MEAN PLATELET VOLUME 10.3 fL (7.4-10.4); MONOCYTES 8.2 % (2-11); NEUTROPHILS 82.1 % (40-80); PLATELET COUNT 161 10x3/uL (130-400); RBC 3.59 10x6/uL (4.00-5.40); RDW 14.4 % (11.5-14.5); WBC 6.1 10x3/uL (4.8-10.8)
--- NOTE | 2019-01-15 04:50 | NUR ---
INFANT TO ROOM PER CHILDRENS TEAM
--- NOTE | 2019-01-15 06:15 | NUR ---
PT SITTING UP IN BED, VISITING WITH MOM AND FOB, SUICIDE SCREENING COMPLETED, PT DENIES NEEDS AT THIS TIME
--- NOTE | 2019-01-15 07:30 | NUR ---
DR. CARRILLO ON UNIT MAKING ROUNDS. ORDERS RECEIVED TO DISCONTINUE FISH BUTCHER AND DIA. ORDERS RECEIVED FOR SIMETHICONE FOR PT C/O OF GAS PAINS.
[2019-01-15 08:30] VITALS: BP 123/70
--- NOTE | 2019-01-15 08:30 | NUR ---
AM ASSESSMENT COMPLETED SEE CHART FLOWSHEET. DILAUDID TABLE OPERATOR DC PER DR. CARRILLO ORDERS. REMAINING DILAUDID WASTED PER HOSPITAL POLICY. DIA DC PER ORDERS, DIA CATH TIP INTACT WITH 600 CLEAR YELLOW URINE NOTED IN BAG. RIGHT HAND SALINE LOCK PATENT AND SECURED WITH TAPE. PT C/O OF PAIN AT INCISION SITE AND SLIGHT CRAMPING IN ABDOMEN AT A 4/10. THIS NURSE EXPLAINED THAT ALL PAIN MEDICATION WAS BY MOUTH AND EDUCATED ON TIMES, PT STATED UNDERSTANDING. INCISION SITE WITHOUT REDNESS OR DRAINAGE, STITCHES INTACT. SCANT LOCHIA NOTED TO PERIPAD, PT DENIES CLOTS. PT REPORTS PASSING GAS WITH PAIN, DENIES BM. PT SCDS ON AT THIS TIME AND WORKING PROPERLY. PT DENIES ALL OTHER NEEDS AT THIS TIME. SRUPX2, CALL LIGHT AND PHONE WITHIN REACH.
--- NOTE | 2019-01-15 09:35 | NUR ---
PT APARTMENT RENTAL AGENT LIGHT WITH C/O OF PAIN AT INCISION SITE AND CRAMPING IN ABDOMEN AT 6/10. NORCO 10MG AND MOTRIN ADMIN, SEE EMAR. SIMETHICONE ADMIN FOR C/O GAS PAIN, SEE EMAR. COKE AND ICE PROVIDED AT PT REQUEST. PT DENIES ALL OTHER NEEDS AT THIS TIME. SRUPX2, CALL LIGHT AND PHONE WITHIN REACH.
--- NOTE | 2019-01-15 10:20 | NUR ---
PT FIBER ARTIST LIGHT FOR ASSISTANCE TO BATHROOM. PT VOIDED 300 LIGHT RED URINE WITH SMALL CLOTS IN HAT. FIRST VOID POST DIA REMOVAL, PT DENIED PAIN WITH VOIDING. PT REQUEST SCDS REMOVED FOR A SHORT TIME. THIS NURSE REMOVED AND EDUCATED ON CONTINUED AMBULATION AND THE NEED TO WEAR DURING BED HOURS, PT STATED UNDERSTANDING. PT AMBULATED WITH NO ASSISTANCE TO BATHROOM. PT DENIES ALL OTHER NEEDS AT THIS TIME. SRUPX2, CALL LIGHT AND PHONE WITHIN REACH.
--- NOTE | 2019-01-15 10:49 | NUR ---
THIS NURSE TO ROOM TO ADMIN FLU SHOT AT PT REQUEST, SEE EMAR. BP ASSESSED FOR ADMIN OF BP MEDICATION, BP 124/78 HR 95, LABETOLOL 100MG ADMIN, SEE EMAR. PT DENIES ALL OTHER NEEDS AT THIS TIME. SRUPX2, CALL LIGHT AND PHONE WITHIN REACH.
--- NOTE | 2019-01-15 11:30 | NUR ---
ROUNDING COMPLETED BY THIS RN. PT SLEEPING IN BED. RESPIRATIONS EVEN AND UNLABORED, NO DISTRESS NOTED. SRUPX2, CALL LIGHT AND PHONE WITHIN REACH.
--- NOTE | 2019-01-15 12:55 | NUR ---
PT HEALTH SAFETY MANAGER LIGHT. PT INFORMED THIS RN OF URINE IN [facility]. 300 LIGHT RED URINE IN [facility] NO CLOTS OBSERVED. PT DENIED ISSUES WITH VOID. PT C/O OF CONSTIPATION. ORDER FOR COLACE RECEIVED. PT DENIES ALL OTHER NEEDS AT THIS TIME. SRUPX2, CALL LIGHT AND PHONE WITHIN REACH.
--- NOTE | 2019-01-15 13:47 | NUR ---
PT LONG CHAIN DYEING MACHINE OPERATOR LIGHT WITH C/O OF PAIN TO ABDOMEN AND BACK AREA 10/16, NORCO 10MG ADMIN ALONG WITH COLACE 100MG, SEE EMAR. FAMILY AT BEDSIDE. PT DENIES ALL OTHER NEEDS AT THIS TIME. SRUPX2, CALL LIGHT AND PHONE WITHIN REACH.
--- NOTE | 2019-01-15 14:40 | NUR ---
PAIN REASSESSMENT COMPLETED BY THIS RN. PT RATES PAIN IN ABDOMEN/BACK AT 2/10. PAIN MEDICATION EFFECTIVE. PT DENIES ALL OTHER NEEDS AT THIS TIME. SRUPX2, CALL LIGHT IN REACH.
--- NOTE | 2019-01-15 14:55 | NUR ---
PT VET TECH LIGHT REQUESTING PAIN MED FOR CRAMPING IN ABDOMEN AND BACK AREA PAIN AT 6/10. PT ALSO REQUESTING BREAT PUMP. THIS RN SPOKE WITH NURSERY NURSE ABOUT BREAST PUMP AT PT REQUEST.
--- NOTE | 2019-01-15 15:46 | NUR ---
ROUNDING COMPLETED BY THIS RN. PT SLEEPING, RESPIRATIONS EVEN AND UNLABORED, NO DISTRESS NOTED. SRUPX2, CALL LIGHT AND PHONE WITHIN REACH.
--- NOTE | 2019-01-15 17:03 | NUR ---
SEE EMAR FOR MOTRIN ADMIN PAIN IN BACK/ABDOMEN RATED AT 6/10. BP 150/97, LABETOLOL 100MG ADMIN PER ORDERS, SEE EMAR. ASSISTED PT IN GATHERING PERSONAL BELONGINGS TO SWITCH TO ROOM 1257. PT REPORTS 2 BMS. SRUPX2, CALL LIGHT AND PHONE WITHIN REACH.
--- NOTE | 2019-01-15 17:22 | NUR ---
PT AMBULATORY TO FROM ROOM 1223 TO 1257. ASSISTED PT WITH PERSONAL BELONGINGS. PT ASSISTED TO SHOWER. DENIES ALL OTHER NEEDS AT THIS TIME.
--- NOTE | 2019-01-15 20:43 | NUR ---
BREAST PUMP SET UP PER THIS NURSE. INSTRUCTIONS OF USE. MOM VERBALIZED UNDERSTANDING
--- NOTE | 2019-01-15 20:45 | NUR ---
PT REC'D IN BED AT THIS TIME. STATES PAIN IS A 5. LUNFS CLEAR. BS+. FUNDUS FIRM, AND MIDLINE. U/2. SMALL LOCHIA NOTED. NO ACUTE DISTRESS NOTED AT THIS TIME. Seng LASSITER RN
[2019-01-15 20:52] VITALS: BP 126/72
--- NOTE | 2019-01-15 20:53 | NUR ---
PT MEDICATED WITH NORCO FOR PAIN OF 5/10. WILL CONTINUE TO MONITOR. Seng LASSITER RN
--- NOTE | 2019-01-15 21:15 | NUR ---
PT TAKEN WATER AND SODA AT THIS TIME. NO NEEDS VERBALIZED. Seng LASSITER, RN
--- NOTE | 2019-01-15 22:15 | NUR ---
PT STATES THAT PAIN IS A 4/10. L SRAVANI RN
--- NOTE | 2019-01-15 23:39 | NUR ---
PT MEDICATED FOR PAIN OF 4 WITH MOTRIN. WILL CONTINUE TO MONITOR. Seng LASSITER RN
--- NOTE | 2019-01-16 00:15 | NUR ---
PT STATES PAIN IS A 3 AT THIS TIME. WILL CONTINUE TO MONITOR. Seng LASSITER RN
--- NOTE | 2019-01-16 02:10 | NUR ---
PT RESTING COMFORTABLY AT THIS TIME. NO DISTRESS NOTED. Seng LASSITERRN
--- NOTE | 2019-01-16 04:40 | NUR ---
PT ASLEEP AT THIS TIME. DID NOT AWAKEN . RESPS EVEN AND UNLABORED. Seng LASSITER RN
--- NOTE | 2019-01-16 06:38 | NUR ---
PT MEDICATED WITH MOTRIN AND NORCO FOR PAIN THIS AM. PAIN LEVEL 9/10. Seng LASSITER RN
[2019-01-16 07:30] VITALS: BP 133/92
--- NOTE | 2019-01-16 07:30 | NUR ---
am assessment completed, see flowsheet. see emar for all meds adm by this rn. srup 2, call light and phone within reach. pt denies all needs at this time.
--- NOTE | 2019-01-16 07:50 | NUR ---
dr. maldonado on unit, to pt's room to speak with pt regarding plan of care for discharge. dr. maldonado inspects incision, stitches intact, and c/d. no redness or drainage noted to incisional site. bp from this am reported to . md wants pt to continue labetalol, and see dr. maldonado on this coming sunday morning at 0800 to have the stitches removed. pt denies questions. large ice water, and coca cola served to pt. pt has regular breakfast tray on bedside table. srup x2, call light and phone within reach.
[2019-01-16] MEDS ORDERED: HYDROCODON-ACE1 EA10 PO (09:05)
[2019-01-16] MEDS ORDERED: MOTRIN600 MG PO (09:07)
--- NOTE | 2019-01-16 10:15 | NUR ---
discharge instructions explained to pt, pt denies all questions. copies provided to pt of d/c instructions, pp instructions, emergency info sheet. prescription for norco and motrin given to pt. pt provided with extra panties/pads for trip to [place] to be with her baby. pt denies all questions.
--- NOTE | 2019-01-16 10:30 | NUR ---
pt off unit in stable condition, by wheelchair, with volunteer. family at her side.
--- NOTE | 2019-02-03 14:22 | OP ---
PATIENT NAME: MARYJANE THOMAS MEDICAL RECORD: [id number] :93 LOCATION:[id number] ADMISSION DATE:01/13/19 SURGEON: ARCENIO BLAIR MD DATE OF OPERATION: 01/13/2019 PREOPERATIVE DIAGNOSES: 1. Induction of labor at 37 weeks secondary to preeclampsia. 2. Failed induction of labor. 3. Right ovarian cyst. POSTOPERATIVE DIAGNOSES: 1. Induction of labor at 37 weeks secondary to preeclampsia. 2. Failed induction of labor. 3. Right ovarian cyst. PROCEDURE: A primary low transverse section, right ovarian cystectomy. SURGEON: Arcenio Blair MD ANESTHESIA: Via spinal. INTRAVENOUS FLUIDS: Per anesthesia record. ESTIMATED BLOOD LOSS: 1200 cc. SPECIMENS: Placenta, cord for gases, and portion of right ovary. COMPLICATIONS: None apparent. PROCEDURE IN DETAIL: The patient was taken to the operating room where regional anesthesia was achieved without any difficulty. The patient was then prepped and draped in normal sterile fashion in the dorsal supine position. A English catheter had been placed and was draining freely. SCDs were on and functioning normally. At this point, the patient was prepped and draped and tested, and the patient found to have adequate anesthesia. A Pfannenstiel skin incision was made and extended downward to the underlying subcutaneous fat to level of the fascia. Fascia was then nicked in the midline and excised bilaterally using the Cortes scissors. Superior and inferior aspect of the fascial incision were grasped with Bharathi clamps times 2, tented upward, and sharply dissected from the underlying rectus muscle using the Cortes scissors and the Bovie cautery. The rectus muscles were then bluntly in the midline. The peritoneum entered sharply at the superior aspect of the incision. Peritoneal incision was then laterally using the Metzenbaum scissors. A bladder blade was then placed into the pelvis and a bladder flap was created by excising the anterior leaf of broad ligament across the lower uterine segment. This was further developed digitally and the bladder blade replaced over the bladder flap. A low transverse incision was then made using the scalpel and extended superiorly and inferiorly using the Pelosi method. The head was delivered atraumatically followed by the body. The infant was bulb suctioned upon delivery and the cord was clamped and cut and the was handed to the awaiting nursery team. Cord was then obtained for gases and the placenta was removed manually intact. The uterus was then thoroughly massaged until good tone was noted. At this point, the uterus was delivered through the incision. Also, bring with it a large 12-13 cm right ovarian mass. The uterus was cleared of all clots and debris and repaired with 0 Vicryl in a running locked fashion OPERATIVE REPORT [id number] JUDY THOMASBob PHILLIPSINE times 2 with good hemostasis noted. Attention was then turned to the right ovary where the uterine blood supply was identified and it was thought to be normal appearing ovary, was identified. The cyst cavity was then entered sharply using the Bovie cautery and the fluid drained using the suction. The cyst wall was thoroughly identified and then excised from the remaining normal ovary using the Bovie cautery and Metzenbaum scissors. The incisional site on the ovary was then oversewn and repaired with 2-0 Vicryl in a running fashion. Good hemostasis noted. The ovarian serosa was then reapproximated over the area of the former cyst with good hemostasis noted. The posterior cul-de-sac was then thoroughly irrigated as well as the anterior cul-de-sac. The uterus was replaced into the pelvis. All surgical sites were found to be hemostatic. Counts were correct times 2 for laps, needles, sponges, and the fascia was repaired with 0 loop PDS. The subcutaneous fat was then reapproximated using 2-0 plain gut and the skin was repaired with nadine. The patient tolerated the procedure well, transported to postanesthesia recovery stable without incident. TRANSINT:[id number] Voice Confirmation ID: [id number] DOCUMENT ID: [id number] ARCENIO BLAIR MD at 1422 CC: [id number] DICTATION DATE: 01/31/19 1205 AIR MARSHAL: 01/31/19 1235 DIS IN 01/16/[address] [facility] [address] [place] [address]
== END 2019-01-16 10:30 | disposition home or self-care (01) | DRG 788 ==
LOC: D.WS 05:30 → D.LD 05:30 → D.WS 01-14 12:46 → D.LD 01-16 07:42
PROVIDERS: ADMIT Obstetrics & Gynecology; ATTEND Obstetrics & Gynecology
PROC: 10D00Z1 Extraction of Products of Conception, Low, Open Approach (ICD-10-PCS; principal; 2019-01-14 10:30)
PROC: 0UB00ZZ Excision of Right Ovary, Open Approach (ICD-10-PCS; 2019-01-14 10:30)
DX: O16.4 Unspecified maternal hypertension, complicating childbirth (principal); Z3A.37 37 weeks gestation of pregnancy; Z37.0 Single live birth; O99.824 Streptococcus B carrier state complicating childbirth; O99.214 Obesity complicating childbirth; E66.9 Obesity, unspecified; O34.83 Maternal care for other abnormalities of pelvic organs, third trimester; N83.201 Unspecified ovarian cyst, right side